=== PATIENT | female | born 1955 | race Caucasian/White ===

== ENCOUNTER 2020-12-04 18:47 | Emergency (ER) | payer MEDICARE ==
[~2020-12-04 18:47] MED LIST: ATARAX25 MG PO; BENTYL10 MG PO; HYDROCODON-ACE1 EAC4 PO; PHENERGAN25 M1 PO; ZOFRAN8 MG PO
[2020-12-04 19:34] LABS: BASOPHIL 0.3 % (0-2); EOSINOPHIL 0.8 % (0-7); HCT 45.1 % (37.0-47.0); HGB 15.3 g/dl (12.5-16.0); LYMPHOCYTE 6.5 % (15-48); MCH 29.8 pg (25.0-31.0); MCHC 33.9 g/dL (32.0-36.0); MCV 87.7 fL (78.0-100.0); MONOCYTE 3.5 % (0-12); MPV 10.8 fL (6.0-9.5); NEUTROPHIL 88.4 % (41-80); NRBC 0; PLT 287 K/uL (150-400); RBC 5.14 M/uL (4.20-5.40); WBC 9.8 K/uL (4.0-10.5)
[2020-12-04 19:34] LABS: BILIRUBIN 1+ mg/dL (NEGATIVE); BLOOD TRACE-INTACT Ery/uL (NEGATIVE); CLARITY CLEAR (CLEAR); COLOR ORANGE (YELLOW); GLUCOSE (U) TRACE mg/dL (NORMAL); LEUKOCYTES TRACE Leu/uL (NEGATIVE); NITRITE POSITIVE (NEGATIVE); PROTEIN 1+ mg/dL (NEGATIVE); SPECIFIC GRAVITY >=1.030 (1.001-1.030); pH 5.5 (5.0-9.0)
[2020-12-04 19:40] LABS: BACTERIA 1+; MUCOUS TRACE
[2020-12-04 19:50] LABS: ALBUMIN 3.7 g/dL (3.4-5.0); BILIRUBIN - TOTAL 0.4 mg/dL (0.2-1.0); BUN/CREAT RATIO (CALC) 13.3 RATIO; CREATININE 0.83 mg/dL (0.51-0.95); GLOBULIN (CALCULATION) 3.2 g/dL; TOTAL PROTEIN 6.9 g/dL (6.4-8.2)
[2020-12-04 19:57] LABS: LACTIC ACID 1.2 mmol/L (0.4-1.9)
[2020-12-04] MEDS ORDERED: NORCO 5-325 TA1 EACH PO (21:51)
[2020-12-04] MEDS ORDERED: ONDANSETRON ODT4 MG SL (21:51)
[2020-12-04] MEDS ORDERED: CIPRO500 MG PO (21:51)
== END 2020-12-04 21:59 | disposition home or self-care (01) ==
LOC: FER 18:47
PROVIDERS: Emergency Medicine Emergency Medical Services
DX: Z53.8 Procedure and treatment not carried out for other reasons (principal)
CPT/HCPCS: 36415; 80053; 81001; 83605; 84145; 85025; 87088; J0696; J1885; J2270; J2405; J7030

== ENCOUNTER 2020-12-05 18:11 | Inpatient (IN) | payer MEDICARE, SELFPAY ==
[~2020-12-05] VITALS: Ht 162.6 cm; Wt 66.7 kg
[~2020-12-05 18:11] MED LIST changes: +CIPRO500 MG PO; +NORCO 5-325 TA1 EACH PO; +ONDANSETRON ODT4 MG SL
[2020-12-05 19:05] LABS: BASOPHIL 0.3 % (0-2); EOSINOPHIL 2.2 % (0-7); HGB 14.5 g/dl (12.5-16.0); LYMPHOCYTE 4.5 % (15-48); MCHC 33.7 g/dL (32.0-36.0); MCV 88.8 fL (78.0-100.0); MONOCYTE 4.4 % (0-12); NEUTROPHIL 88.1 % (41-80); NRBC 0; PLT 256 K/uL (150-400); RBC 4.84 M/uL (4.20-5.40); RDW 14.1 % (11.5-14.0); WBC 11.5 K/uL (4.0-10.5)
[2020-12-05 19:15] LABS: ALBUMIN 3.1 g/dL (3.4-5.0); BILIRUBIN - TOTAL 0.8 mg/dL (0.2-1.0); BUN/CREAT RATIO (CALC) 17.9 RATIO; CREATININE 0.78 mg/dL (0.51-0.95); TOTAL PROTEIN 7.1 g/dL (6.4-8.2)
[2020-12-05 19:31] LABS: BILIRUBIN 2+ mg/dL (NEGATIVE); BLOOD 1+ Ery/uL (NEGATIVE); CLARITY CLOUDY (CLEAR); COLOR YELLOW (YELLOW); GLUCOSE (U) NORMAL (NORMAL); LEUKOCYTES NEGATIVE Leu/uL (NEGATIVE); NITRITE NEGATIVE (NEGATIVE); PROTEIN 1+ mg/dL (NEGATIVE); SPECIFIC GRAVITY >=1.030 (1.001-1.030); UROBILINOGEN 0.2 mg/dL (0.2-1.0)
[2020-12-05 19:40] LABS: BACTERIA 2+; SQUAMOUS EPITHELIAL CELLS 20-50; URINARY RBC RARE
[2020-12-06 06:08] LABS: BASOPHIL 0.6 % (0-2); EOSINOPHIL 4.8 % (0-7); HCT 35.7 % (37.0-47.0); HGB 11.9 g/dl (12.5-16.0); LYMPHOCYTE 13.2 % (15-48); MCH 29.8 pg (25.0-31.0); MCHC 33.3 g/dL (32.0-36.0); MCV 89.5 fL (78.0-100.0); MONOCYTE 10.1 % (0-12); MPV 10.7 fL (6.0-9.5); NRBC 0; PLT 206 K/uL (150-400); RBC 3.99 M/uL (4.20-5.40)
[2020-12-06 06:27] LABS: ALBUMIN 2.4 g/dL (3.4-5.0); BILIRUBIN - TOTAL 0.6 mg/dL (0.2-1.0); BUN/CREAT RATIO (CALC) 17.3 RATIO; CREATININE 0.75 mg/dL (0.51-0.95); GLOBULIN (CALCULATION) 3.4 g/dL; POTASSIUM 3.6 mmol/L (3.5-5.1); TOTAL PROTEIN 5.8 g/dL (6.4-8.2)
[2020-12-06] MEDS ORDERED: NORCO 5-325 TA1 EACH PO (12:12)
[2020-12-06] MEDS ORDERED: CIPRO500 MG PO (12:13)
[2020-12-06] MEDS ORDERED: MACROBID100 MG PO (12:14)
[2020-12-06] MEDS ORDERED: LIDOCAINE 5% P1 EACH TOP (12:14)
[2020-12-06] MEDS ORDERED: ONDANSETRON ODT4 MG PO (12:15)
[2020-12-06] MEDS ORDERED: BACLOFEN 20MG T20 MG PO (12:23)
[2020-12-06] MEDS ORDERED: ATARAX25 MG PO (12:23)
[2020-12-06] MEDS ORDERED: MOTRIN600 MG PO (12:24)
[2020-12-06] MEDS ORDERED: PROAIR HFA8.5 GM INH (12:24)
[2020-12-07 05:57] LABS: BASOPHIL 0.7 % (0-2); EOSINOPHIL 8.7 % (0-7); HCT 33.9 % (37.0-47.0); HGB 11.2 g/dl (12.5-16.0); LYMPHOCYTE 23.2 % (15-48); MCV 90.9 fL (78.0-100.0); MONOCYTE 12.3 % (0-12); MPV 10.7 fL (6.0-9.5); NEUTROPHIL 54.8 % (41-80); NRBC 0; PLT 214 K/uL (150-400); RBC 3.73 M/uL (4.20-5.40); RDW 14.3 % (11.5-14.0); WBC 5.8 K/uL (4.0-10.5)
[2020-12-07 06:23] LABS: ALBUMIN 2.1 g/dL (3.4-5.0); BILIRUBIN - TOTAL 0.4 mg/dL (0.2-1.0); BUN/CREAT RATIO (CALC) 10.7 RATIO; CREATININE 0.84 mg/dL (0.51-0.95); POTASSIUM 3.8 mmol/L (3.5-5.1); TOTAL PROTEIN 5.1 g/dL (6.4-8.2)
--- NOTE | 2020-12-07 10:00 | NUR ---
RN CHECKED PATIENT O2 SATS AFTER AMBULATING TO AND FROM BATHROOM WITHOUT OXYGEN ON. PATIENT O2 SATS ON ROOM AIR ARE 85%. PLACED O2 AT 2L/NC ON PATIENT AND O2 SATS CAME UP TO 93%. TALKED WITH PATIENT ABOUT POSSIBLE NEED FOR HOME O2. PATIENT STATED "I DON'T THINK I NEED THAT". ADVISED PATIENT SHE COULD NOT BE DISCHARGED WITH LOW O2 SATS WITHOUT BEING SET UP FOR HOME OXYGEN. PATIENT DISCUSSED WITH RN ABOUT BURNING WITH URINATION. PATIENT SAYS, "I WANT TO ASK YOU A QUESTION". PATIENT PROCEEDED TO SAY TO RN, "I HAVE BEEN STAYING WITH MY GRANDDAUGHTER AND SHE HAS BUGS. DO YOU THINK IT IS POSSIBLE THAT ONE OF THE BUGS COULD HAVE CRAWLED INTO MY URETHRA AND THAT IS WHY I AM BURNING?" RN ADVISED PATIENT THAT NO SUCH INCIDENCE WAS KNOWN BUT TO ASK THE DOCTOR WHEN HE MADE HIS VISIT. ADVISED PATIENT THAT RN WOULD SPEAK TO MD ABOUT PYRIDIUM TO HELP WITH BURNING. PATIENT STATED "I GUESS SO. IT'S JUST MESSY TO DEAL WITH".
[2020-12-08 05:51] LABS: BASOPHIL 0.4 % (0-2); EOSINOPHIL 4.6 % (0-7); HCT 35.1 % (37.0-47.0); HGB 11.6 g/dl (12.5-16.0); MCH 29.8 pg (25.0-31.0); MCV 90.2 fL (78.0-100.0); MONOCYTE 6.9 % (0-12); MPV 10.5 fL (6.0-9.5); NEUTROPHIL 71.9 % (41-80); NRBC 0; PLT 235 K/uL (150-400); RBC 3.89 M/uL (4.20-5.40); RDW 14.6 % (11.5-14.0); WBC 9.5 K/uL (4.0-10.5)
[2020-12-08 06:10] LABS: ALBUMIN 2.3 g/dL (3.4-5.0); BILIRUBIN - TOTAL 0.5 mg/dL (0.2-1.0); BUN/CREAT RATIO (CALC) 7.9 RATIO; CREATININE 0.76 mg/dL (0.51-0.95); GLOBULIN (CALCULATION) 3.1 g/dL; TOTAL PROTEIN 5.4 g/dL (6.4-8.2)
--- NOTE | 2020-12-08 09:25 | NUR ---
PATIENT GIVEN SCHEDULED PO MEDS AND NEEDED TO GO TO THE BATHROOM TO EMPTY HER ILEOSTOMY. PATIENT REMOVED OXYGEN AND AMBULATED TO BATHROOM. ADVISED PATIENT RN WAS GOING TO WAIT AND CHECK O2 SATS ON ROOM AIR. UPON RETURN TO BED, O2 MONITOR PLACED ON PATIENT AND SATURATION 85%. PLACED 2L/NC ON PATIENT AND SATS INCREASED TO 92%. ADVISED PATIENT THAT HOME O2 TEST WOULD NEED TO BE PERFORMED PRIOR TO PATIENT BEING DISCHARGED AND THAT IT APPEARED PATIENT WOULD NEED HOME O2. PATIENT STATED "I DON'T THINK I NEED OXYGEN AND PROBABLY WON'T USE IT". RN ADVISED PATIENT THAT HOSPITAL WOULD BE UNABLE TO DISCHARGE PATIENT WITHOUT ARRANGING FOR HOME OXYGEN. DISCUSSED CONSEQUENCES OF NOT USING REQUIRED OXYGEN SUCH DYSPNEA,CONFUSION, FATIGUE, STRESS ON HEART. PATIENT CONTINUED TO STATE "I DON'T NEED OXYGEN. THAT IS MY NORMAL LEVEL". FIELD CARE COORDINATOR SPOKE TO RN AFTER VISITING PATIENT TO ADVISE OF NEED FOR HOME O2 TEST. RN ADVISED HOME O2 TEST WILL BE DONE. RN SPOKE WITH RICARDO FREEMAN ABOUT PERFORMING HOME O2 TEST.
--- NOTE | 2020-12-08 10:03 | NUR ---
12/08/20 Ms. Hollingsworth is and lives alone. She was independent in the home and community prior to admission. She does not have any DME. Ms. Hollingsworth is currently using 02. Will monitor for 02 needs. - Ms. Hollingsworth reports to faintly be able to meet her financial needs. She was provided with financial community resources to include food love.
[2020-12-08] MEDS ORDERED: DIFLUCAN 100MG100 MG PO (12:09)
[2020-12-08] MEDS ORDERED: NORCO 5-325 TA1 EACH PO (12:09)
--- NOTE | 2020-12-08 12:40 | NUR ---
12/08/20 A referral was made to [facility] for 02 per patient choice. Ms. Hollingsworth said she would not wear the 02 at home. She did permit for the 02 order to be faxed to [facility]. - Report given to MS STEVE Angel.
--- NOTE | 2020-12-08 14:58 | NUR ---
HEARD PATIENT YELLING IN HALLWAY, PATIENT UNHAPPY ABOUT WAITING "2HOURS" FOR OXYGEN TANK TO ARRIVE. I ATTEMPTED TO SPEAK WITH PATIENT, INTRODUCED MYSELF THE MEDICAL OFFICE TECHNICIAN, ASKED HER TO SHARE HER CONCERNS, SHE WOULD NOT STOP WALKING AWAY. PATIENT REPORTED "I DONT NEED NO OXYGEN, YALL ARE JUST TRYING TO SELL SOMETHING AND SHOVE IT DOWN MY THROAT." "89 ISNT LOW OXYGEN, I DONT EVEN HAVE ANY AT HOME, I DONT NEED THAT SHIT." PATIENT WOULD NOT STOP WALKING AWAY, I ASKED PATIENT IF I COULD REMOVE HER IV, SHE SAID "ITS IN THE TRASH, I DID IT." I ASKED IF I COULD CHECK TO MAKE SURE IT WAS OUT AND NOT BLEEDING, SHE WOULD NOT LET ME LOOK AT HER ARM. SHE CONTINUED TO WALK OUT THE DOOR AND LEFT AMA, WITHOUT SIGNING THE PAPERS. HOME OXYGEN HAD BEEN ORDERED FOR THE PATIENT BECAUSE SHE WAS DROPPING TO MID 80'S ON ROOM AIR WHEN AMBULATING. ATTEMPTED TO CALL PATIENT TWO TIMES TO REQUEST HER RETURN TO THE HOSPTIAL TO VERIFY HER IV WAS REMOVED, PATIENT DID NOT ANSWER. ESCALATED TO CORPORATE PARALEGAL DIALYSIS TECHNICIAN AND WAS INSTRUCTED TO CALL POLICE FOR WELFARE CHECK. POLICE CALLED FOR WELFARE CHECK.
== END 2020-12-08 13:44 | disposition home or self-care (01) | DRG 759 ==
LOC: FER 18:11 → FMS 21:46
PROVIDERS: Internal Medicine; Nurse Practitioner; Physician Assistant; ADMIT Allergy & Immunology Allergy
DX: B37.41 Candidal cystitis and urethritis (principal); J44.9 Chronic obstructive pulmonary disease, unspecified; R74.01 Elevation of levels of liver transaminase levels; I25.10 Atherosclerotic heart disease of native coronary artery without angina pectoris; G89.29 Other chronic pain; M54.9 Dorsalgia, unspecified; Z20.822 Contact with and (suspected) exposure to COVID-19; R09.02 Hypoxemia; Z90.710 Acquired absence of both cervix and uterus; Z90.49 Acquired absence of other specified parts of digestive tract; Z98.890 Other specified postprocedural states; Z88.6 Allergy status to analgesic agent; Z87.19 Personal history of other diseases of the digestive system; Z93.2 Ileostomy status; Z87.442 Personal history of urinary calculi
CPT/HCPCS: 36415; 36600; 71045; 71275; 80053; 81001; 82803; 83605; 84145; 84484; 85025; 87040; 87088; 94640; J0696; J0780; J1885; J2270; J2405; J7030; Q9967; U0002

== ENCOUNTER 2021-09-20 04:37 | Inpatient (IN) | payer MEDICARE ==
[~2021-09-20] VITALS: Ht 162.6 cm; Wt 68.5 kg
[~2021-09-20 04:37] MED LIST changes: +BACLOFEN 20MG T20 MG PO; +DIFLUCAN 100MG100 MG PO; +LIDOCAINE 5% P1 EACH TOP; +MACROBID100 MG PO; +MOTRIN600 MG PO; +ONDANSETRON ODT4 MG PO; +PROAIR HFA8.5 GM INH
[2021-09-20 06:25] LABS: BASOPHIL 0.3 % (0-2); EOSINOPHIL 1.8 % (0-7); HCT 44.8 % (37.0-47.0); HGB 14.7 g/dl (12.5-16.0); LYMPHOCYTE 1.5 % (15-48); MCH 28.5 pg (25.0-31.0); MCHC 32.8 g/dL (32.0-36.0); MPV 11.3 fL (6.0-9.5); NEUTROPHIL 94.6 % (41-80); NRBC 0; PLT 240 K/uL (150-400); RBC 5.15 M/uL (4.20-5.40); RDW 14.6 % (11.5-14.0); WBC 7.1 K/uL (4.0-10.5)
[2021-09-20 06:49] LABS: INFLUENZA A NAA NEGATIVE (NEGATIVE)
[2021-09-20 06:51] LABS: CORONAVIRUS 2019 SARS-COV-2 POSITIVE (NEGATIVE)
[2021-09-20 07:30] LABS: ALBUMIN 3.3 g/dL (3.4-5.0); BILIRUBIN - TOTAL 0.5 mg/dL (0.2-1.0); BUN/CREAT RATIO (CALC) 14.4 RATIO; CREATININE 1.18 mg/dL (0.51-0.95); GLOBULIN (CALCULATION) 2.9 g/dL; POTASSIUM 3.2 mmol/L (3.5-5.1); TOTAL PROTEIN 6.2 g/dL (6.4-8.2)
[2021-09-20 07:33] LABS: LACTIC ACID 1.4 mmol/L (0.4-1.9)
[2021-09-20 07:59] LABS: COLOR ORANGE (YELLOW)
[2021-09-20 08:01] LABS: CLARITY CLEAR (CLEAR)
[2021-09-20 08:03] LABS: MUCOUS TRACE
[2021-09-20 08:04] LABS: AMORPHOUS URATES CRYSTALS TRACE
[2021-09-20 08:05] LABS: BACTERIA TRACE; GRANULAR CASTS TRACE
[2021-09-20 11:39] LABS: LACTIC ACID 1.7 mmol/L (0.4-1.9)
[2021-09-20] MEDS ORDERED: ZOCOR10 MG PO (13:48)
[2021-09-20] MEDS ORDERED: ZYRTEC10 M3 PO (13:50)
[2021-09-20] MEDS ORDERED: BACTRIM 400-801 EACH PO (13:53)
[2021-09-21 05:30] LABS: ALBUMIN 2.6 g/dL (3.4-5.0); BILIRUBIN - TOTAL 0.4 mg/dL (0.2-1.0); BUN/CREAT RATIO (CALC) 17.7 RATIO; C-REACTIVE PROTEIN 9.8 mg/dL (<=0.90); CREATININE 0.79 mg/dL (0.51-0.95); GLOBULIN (CALCULATION) 2.5 g/dL; POTASSIUM 4.5 mmol/L (3.5-5.1); TOTAL PROTEIN 5.1 g/dL (6.4-8.2)
[2021-09-21 05:37] LABS: BASOPHIL 0.1 % (0-2); EOSINOPHIL 0 % (0-7); HCT 38.2 % (37.0-47.0); HGB 12.2 g/dl (12.5-16.0); LYMPHOCYTE 2.6 % (15-48); MCH 28.6 pg (25.0-31.0); MCHC 31.9 g/dL (32.0-36.0); MCV 89.5 fL (78.0-100.0); MONOCYTE 1.8 % (0-12); MPV 11.7 fL (6.0-9.5); NEUTROPHIL 92.6 % (41-80); NRBC 0; PLT 212 K/uL (150-400); RBC 4.27 M/uL (4.20-5.40); RDW 15.3 % (11.5-14.0)
[2021-09-21 05:45] LABS: WBC 13.5 K/uL (4.0-10.5)
--- NOTE | 2021-09-21 13:46 | NUR ---
09/21/21 Ms. Hollingsworth lives alone. She was independent prior to admission. She does not use any DME and is currently not on 02. Will monitor for discharge planning needs.
[2021-09-22 09:00] LABS: BASOPHIL 0.1 % (0-2); EOSINOPHIL 0 % (0-7); HCT 38.5 % (37.0-47.0); HGB 12.9 g/dl (12.5-16.0); MCH 28.5 pg (25.0-31.0); MCHC 33.5 g/dL (32.0-36.0); MONOCYTE 3.9 % (0-12); MPV 11.1 fL (6.0-9.5); NEUTROPHIL 88.3 % (41-80); NRBC 0; PLT 216 K/uL (150-400); RBC 4.52 M/uL (4.20-5.40); RDW 15.1 % (11.5-14.0); WBC 15.1 K/uL (4.0-10.5)
[2021-09-22 09:10] LABS: MCV 85.2 fL (78.0-100.0)
[2021-09-22 09:23] LABS: ALBUMIN 2.8 g/dL (3.4-5.0); BILIRUBIN - TOTAL 0.3 mg/dL (0.2-1.0); C-REACTIVE PROTEIN 4.2 mg/dL (<=0.90); CREATININE 0.72 mg/dL (0.51-0.95); GLOBULIN (CALCULATION) 3.1 g/dL; MAGNESIUM 1.7 mg/dL (1.8-2.4); PHOSPHORUS 1.9 mg/dL (2.6-4.7); POTASSIUM 4.1 mmol/L (3.5-5.1); TOTAL PROTEIN 5.9 g/dL (6.4-8.2)
[2021-09-22 19:29] LABS: BILIRUBIN NEGATIVE (NEGATIVE); BLOOD NEGATIVE Ery/uL (NEGATIVE); CLARITY CLEAR (CLEAR); COLOR YELLOW (YELLOW); GLUCOSE (U) NORMAL (NORMAL); LEUKOCYTES NEGATIVE Leu/uL (NEGATIVE); NITRITE POSITIVE (NEGATIVE); PROTEIN NEGATIVE (NEGATIVE); UROBILINOGEN 0.2 mg/dL (0.2-1.0)
[2021-09-22 19:42] LABS: SQUAMOUS EPITHELIAL CELLS RARE
[2021-09-22 19:45] LABS: BACTERIA TRACE
[2021-09-23 06:53] LABS: BASOPHIL 0.2 % (0-2); EOSINOPHIL 0 % (0-7); HCT 38.9 % (37.0-47.0); HGB 13.1 g/dl (12.5-16.0); LYMPHOCYTE 9.7 % (15-48); MCH 28.3 pg (25.0-31.0); MCHC 33.7 g/dL (32.0-36.0); MONOCYTE 3.7 % (0-12); NEUTROPHIL 85.9 % (41-80); NRBC 0; PLT 237 K/uL (150-400); RBC 4.63 M/uL (4.20-5.40); RDW 14.9 % (11.5-14.0); WBC 10.3 K/uL (4.0-10.5)
[2021-09-23 07:22] LABS: ALBUMIN 2.8 g/dL (3.4-5.0); BILIRUBIN - TOTAL 0.3 mg/dL (0.2-1.0); BUN/CREAT RATIO (CALC) 33.8 RATIO; C-REACTIVE PROTEIN 2.3 mg/dL (<=0.90); CREATININE 0.68 mg/dL (0.51-0.95); GLOBULIN (CALCULATION) 3.2 g/dL; PHOSPHORUS 3.4 mg/dL (2.6-4.7); POTASSIUM 3.8 mmol/L (3.5-5.1)
--- NOTE | 2021-09-23 12:18 | NUR ---
09/23/21 Patient is discharging home. Home 02 is not required per Dr. Pérez.
[2021-09-23] MEDS ORDERED: CEFDINIR300 MG PO (12:39)
[2021-09-23] MEDS ORDERED: DULERA 200 MCG8.8 GM INH (13:21)
[2021-09-23] MEDS ORDERED: VENTOLIN HFA IN18 GM INH (13:21)
[2021-09-23] MEDS ORDERED: ATROVENT HFA12.9 GM INH (13:21)
== END 2021-09-23 14:48 | disposition home or self-care (01) | DRG 871 ==
LOC: FER 04:37 → FMS 09:24 → FICU 09:24 → FMS 09:25 → FICU 11:36 → FMS 09-21 12:12
PROVIDERS: Emergency Medicine; Emergency Medicine Emergency Medical Services; ADMIT Internal Medicine
PROC: XW033E5 Introduction of Remdesivir Anti-infective into Peripheral Vein, Percutaneous Approach, New Technology Group 5 (ICD-10-PCS; principal; 2021-09-20)
PROC: 8E0ZXY6 Isolation (ICD-10-PCS; 2021-09-20)
PROC: XW0DXM6 Introduction of Baricitinib into Mouth and Pharynx, External Approach, New Technology Group 6 (ICD-10-PCS; 2021-09-21)
DX: A41.9 Sepsis, unspecified organism (principal); U07.1 COVID-19; J96.01 Acute respiratory failure with hypoxia; N30.00 Acute cystitis without hematuria; K50.90 Crohn's disease, unspecified, without complications; J44.1 Chronic obstructive pulmonary disease with (acute) exacerbation; N17.9 Acute kidney failure, unspecified; R65.20 Severe sepsis without septic shock; E87.6 Hypokalemia; E78.5 Hyperlipidemia, unspecified; I25.10 Atherosclerotic heart disease of native coronary artery without angina pectoris; E83.39 Other disorders of phosphorus metabolism; E83.42 Hypomagnesemia; M54.2 Cervicalgia; M54.9 Dorsalgia, unspecified; G89.29 Other chronic pain; Z93.2 Ileostomy status; Z90.710 Acquired absence of both cervix and uterus; Z90.49 Acquired absence of other specified parts of digestive tract; I25.2 Old myocardial infarction; Z87.442 Personal history of urinary calculi; Z88.5 Allergy status to narcotic agent; Z88.1 Allergy status to other antibiotic agents
CPT/HCPCS: 36415; 36600; 71275; 80053; 81001; 82803; 83605; 83735; 83880; 84100; 84145; 84484; 85025; 85379; 86140; 87040; 87070; 87088; 87205; 93005; 94010; 94640; 94664; 94667; 94668; C9113; C9399; J0456; J0696; J1100; J1650; J2270; J2405; J3475; J3480; J7030; J7040; J7050; J8540; Q9967; U0002